=== PATIENT | female | born 1940 | race Caucasian/White ===

== ENCOUNTER 2022-02-27 02:07 | Inpatient (IN) | payer MEDICARE, OTHER ==
[2022-02-27] VITALS: BP 137/63
[~2022-02-27] VITALS: Ht 152.4 cm; Wt 80.7 kg
[2022-02-27] MEDS ORDERED: FUROSEMIDE 20 MG/2 ML VIAL IVP ONE (02:15)
[2022-02-27] MEDS ORDERED: NITROGLYCERIN OINT 1 GM PACKET TP ONE ×2 (02:15→03:39)
[2022-02-27] MEDS ORDERED: ASPIRIN 325 MG TABLET PO ONE (02:15)
[2022-02-27 02:39] LABS: HEMATOCRIT 34.2 % (31.2-41.9); MEAN CORPUSCULAR VOLUME 92.7 fL (75.5-95.3); PLATELET COUNT (AUTO) 229 K/uL (179-408)
--- NOTE | 2022-02-27 02:46 | NUR ---
02:00 - PATIENT BROUGHT IN BY RESCUE, BEING AMBU BAGGED 100% WITH ORAL AIRWAY IN PLACE, THEN RT PRESENT, PT BEING BAGGED , THEN PT PLACED ON BI/PAP @ 02:08, WITH RT ASSIST, INITIAL SETTINGS, V/O DR SOLITARIO, 06/07 , R16, 100%, PT WAS WAKING UP SLIGHTLY , KNOWS WHERE SHE IS. Millicent RAMIREZ FLIGHT LINE MECHANIC Addendum: 02/27/22 at 0249 by BARBARA RAMIREZ RT Amended: Links added.
[2022-02-27 02:47] LABS: CARBON DIOXIDE 16 mmol/L (21-32); CHLORIDE 102 mmol/L (98-107); CREATININE 1.6 mg/dL (0.6-1.3); POTASSIUM 3.2 mmol/L (3.5-5.1); UREA NITROGEN, BLOOD 20 mg/dL (7-18)
[2022-02-27 02:50] LABS: GLUCOSE 359 mg/dL (74-106)
--- NOTE | 2022-02-27 02:50 | NUR ---
BIB FLAME HARDENING MACHINE SETTER FROM HOME WITH C/O SOB, PATIENT ARRIVED TO ER WITH A GCS OF 1-1-1- BVM IN PROCESS, PATIENT RESPONDED TO PAINFUL STIMULI WHEN PLACED INTO BED. MD AT BEDSIDE FOR EXAM, PATIENT WAS PLACED ON BI-PAP, BILATERAL WRIST RESTRAINS APPLIED PER MD ORDER. PATENT IS BECOMING MORE ORIENTED TO SITUATION AND WAS ABLE TO ANSWER QUESTIONS. #20G ESTABLISHED IN LEFT AC, BLOOD WAS COLLECTED AND SENT TO LAB. PATIENT INFORMED OF PLAN OF CARE AT THIS TIME. #20G REMAINS INTACT FROM FIELD TO LEFT HAND, SIDE RAILS UP WILL CONTINUE TO MONITOR.
[2022-02-27] MEDS ORDERED: POTASSIUM BICARBONATE/CIT AC 25 MEQ TABLET.EFF PO ONE (03:00)
[2022-02-27] MEDS ORDERED: POTASSIUM BICARBONATE/CIT AC 25 MEQ TABLET.EFF ONE (03:38)
[2022-02-27] MEDS ORDERED: FUROSEMIDE 40 MG/4 ML VIAL ONE (03:38)
[2022-02-27] MEDS ORDERED: ASPIRIN 325 MG TABLET ONE (03:39)
[2022-02-27 04:00] VITALS: BP 135/68
--- NOTE | 2022-02-27 04:27 | NUR ---
ASSISTED ON BEDPAN, SPECIMEN SENT TO LAB AT THIS TIME. FAMILY AT BEDSIDE UPDATED ON PLAN OF CARE. RESPIRATORY CALLED TO CHECK ON BI-PAP MACHINE, PATIENT STATES AIR BLOWING INTO HER EYES.
[2022-02-27 04:44] LABS: *BILIRUBIN,URIN NEGATIVE (NEGATIVE); *BLOOD, URINE 2+ (NEGATIVE); *CLARITY,URINE CLEAR (CLEAR); *COLOR,URINE YELLOW (YELLOW); *KETONES,URINE NEGATIVE (NEGATIVE); *UROBILINOGEN,URINE 0.2 E.U./dl (NORMAL); LEUKOCYTE ESTERASE ,URINE 1+ (NEGATIVE); NITRITE, URINE NEGATIVE (NEGATIVE); PH,URINE 5.5 (5.0-8.0); UGLUCOSE TRACE (NEGATIVE)
[2022-02-27 05:02] LABS: BACTERIA,URINE MANY /HPF (NONE SEEN); SQUAMOUS EPITHELIAL CELL,UR FEW /HPF (NONE SEEN)
[2022-02-27 05:21] LABS: BILIRUBIN,DIRECT 0.1 mg/dL (0.0-0.2); BILIRUBIN,TOTAL 0.2 mg/dL (0.2-1.0)
[2022-02-27] MEDS: MAGNESIUM SULFATE/D5W 100 ML IV SCH ×3 (06:07→06:53)
[2022-02-27] MEDS ORDERED: MAGNESIUM SULFATE/D5W 100 ML ONE (06:32)
[2022-02-27] MEDS ORDERED: PANTOPRAZOLE SODIUM 40 MG TABLET.DR PO SCH (07:00)
[2022-02-27] MEDS ORDERED: ENOXAPARIN SODIUM 40 MG/0.4 ML DISP.SYRIN SQ SCH (07:00)
[2022-02-27] MEDS ORDERED: ONDANSETRON 4 MG/2 ML VIAL IV PRN (07:00)
[2022-02-27] MEDS ORDERED: MAGNESIUM HYDROXIDE 30 ML LIQUID UDC PO PRN (07:00)
[2022-02-27] MEDS ORDERED: AZITHROMYCIN IV 500 MG in IV DEXTROSE 5% 250 ML IV SCH (07:00)
[2022-02-27] MEDS ORDERED: REMEDY ESSENTIAL ZINC PASTE 113 GM TP PRN (07:00)
[2022-02-27 07:11] LABS: ABG BASE EXCESS -4.3 mmol/L; ABG HCO3 20.7 mmol/L; ABG PCO2 37.7 mmHg (35.0-45.0); ABG PH 7.357 (7.350-7.450); ABG PO2 269.7 mmHg (75.0-100.0); ABG SITE RIGHT RADIAL; ABG TOTAL HEMOGLOBIN 11.2 G/dL (12.0-16.0); COHb 0.3 % (0.5-1.5); MetHb 0.3 % (0.0-1.5); VENT MODE BIPAP
--- NOTE | 2022-02-27 07:45 | NUR ---
Received report from night custodian. Pt is in room 1A, A/Ox3 and on BiPap. Pt was admitted to tele with Dx of CHF and respiratory failure by . Spoke with nursing supervisor boarding Angélica who stated pt can by admitted to 3rd floor tele, called for bed, charge nurse to call back. Plan of care discussed with pt and son who is at bedside.
[2022-02-27] MEDS: CEFTRIAXONE 1 G in IV DEXTROSE 5% 50 ML IV SCH (08:30)
[2022-02-27] MEDS ORDERED: CEFTRIAXONE /D5W 50ML IVPB **ER PYXIS IV ONE (08:40)
[2022-02-27] MEDS ORDERED: AZITHROMYCIN 500MG/ D5W 250ML IVPB **ER PYXIS ONLY IV ONE (08:40)
[2022-02-27] MEDS ORDERED: ENOXAPARIN SODIUM 40 MG/0.4 ML DISP.SYRIN SQ ONE (08:40)
--- NOTE | 2022-02-27 09:00 | NUR ---
Pt requested to be taken off Bipap. HEAD BANDER AND LINER OPERATOR at bedside, pt placed on 100% NRB mask with O2 at 15L.
--- NOTE | 2022-02-27 09:30 | NUR ---
Pt remains on NRB mask with pulse ox 100%. Nursing administrative supervisor is aware of pending tele admission.
[2022-02-27] MEDS: FUROSEMIDE 40 MG/4 ML VIAL IV SCH (10:15)
[2022-02-27] MEDS ORDERED: DEXTROSE 50% 50 ML DISP.SYRIN IV PRN (11:15)
[2022-02-27] MEDS ORDERED: POTASSIUM CHLORIDE 20 MEQ TAB.PRT.SR PO ONE (11:30)
[2022-02-27] MEDS: BLOOD SUGAR DIAGNOSTIC 1 EACH STRIP VI SCH ×3 (11:30→21:00)
--- NOTE | 2022-02-27 12:00 | NUR ---
Pt was seen by .
--- NOTE | 2022-02-27 12:15 | NUR ---
Pt placed on O2 6L via N/C.
--- NOTE | 2022-02-27 12:30 | NUR ---
Pt resting in gurney and talking on cell phone. No acute distress noted at this time. Pt remains on O2 6L via N/C with pulse ox readings of 94-98%.
[2022-02-27] MEDS ORDERED: ACETAMINOPHEN 325 MG TABLET ONE (13:36)
--- NOTE | 2022-02-27 14:34 | NUR ---
PATIENT ROLLED IN FROM EMERGENCY DEPARTMENT VIA GURNEY BY SAMI. PATIENT AWAKE, ALERT, AWAKE AND VERBALLY RESPONSIVE. PATIENT ASSISTED OUT OF THE GURNEY AND SHE AMBULATED TO THE BATHROOM WITH MINIMAL ASSISTANCE AND PATIENT TOLERATED IT WELL. PATIENT BACK TO BED. TELE BOX ATTACHED TO PATIENT ACCORDING. PATIENT CLEANED, CHANGED INTO HOSPITAL GOWN AND MADE COMFORTABLE. ORIENTATION TO THE ROOM COMPLETED, PATIENT VERBALIZED UNDERSTANDING. WILL MONITOR.
--- NOTE | 2022-02-27 14:40 | NUR ---
SBAR report given via telephone and pt trans to tele floor room 308. No acute distress noted, family with pt.
[2022-02-27 14:56] VITALS: BP 137/78
[2022-02-27] MEDS ORDERED: ATOR40TA PO (15:42)
[2022-02-27] MEDS ORDERED: LEVO125T8 PO (15:42)
[2022-02-27] MEDS ORDERED: LOSA1TAB42 PO (15:42)
[2022-02-27] MEDS ORDERED: PANT40TA49 PO (15:42)
[2022-02-27] MEDS ORDERED: METO-357 PO (15:42)
[2022-02-27] MEDS ORDERED: ZOLPIDEM 5 MG TABLET PO PRN (18:45)
[2022-02-27 20:00] VITALS: BP 172/76
[2022-02-27] MEDS: ATORVASTATIN 40 MG TABLET PO SCH (22:08)
[2022-02-27] MEDS: METOPROLOL SUCCINATE XL 50 MG TAB.SR.24H PO SCH (22:16)
[2022-02-27] MEDS: INSULIN REGULAR, HUMAN 300 UNIT/3 ML VIAL SQ PRN (22:21)
[2022-02-27] MEDS: ACETAMINOPHEN 325 MG TABLET PO PRN (22:23)
[2022-02-28] MEDS: ACETAMINOPHEN 325 MG TABLET PO PRN ×2 (01:58→22:08)
[2022-02-28] MEDS: PANTOPRAZOLE SODIUM 40 MG TABLET.DR PO SCH (06:09)
[2022-02-28] MEDS: CEFTRIAXONE 1 G in IV DEXTROSE 5% 50 ML IV SCH (06:09)
[2022-02-28] MEDS: LEVOTHYROXINE SODIUM 125 MCG TABLET PO SCH (06:09)
[2022-02-28] MEDS: BLOOD SUGAR DIAGNOSTIC 1 EACH STRIP VI SCH ×4 (07:45→21:15)
[2022-02-28 07:48] LABS: HEMATOCRIT 28.9 % (31.2-41.9); MEAN CORPUSCULAR VOLUME 88.7 fL (75.5-95.3); PLATELET COUNT (AUTO) 195 K/uL (179-408)
[2022-02-28 08:08] LABS: CREATININE 1.2 mg/dL (0.6-1.3); MAGNESIUM 1.6 mg/dL (1.8-2.4); PHOSPHOROUS 5.9 mg/dL (2.5-4.9); POTASSIUM 4.8 mmol/L (3.5-5.1)
[2022-02-28] MEDS ORDERED: AZITHROMYCIN IV 500 MG in IV DEXTROSE 5% 250 ML IV SCH (09:00)
[2022-02-28] MEDS ORDERED: Medication Not On Formulary EA (Losartan/Hydrochlorothiazide (Losartan-Hctz 100-12.5 Mg PO SCH (09:00)
[2022-02-28] MEDS: FUROSEMIDE 40 MG/4 ML VIAL IV SCH (09:47)
[2022-02-28 09:51] LABS: NEUTROPHILS % (MANUAL) 0 % (42-75)
[2022-02-28] MEDS: METOPROLOL SUCCINATE XL 50 MG TAB.SR.24H PO SCH ×2 (09:56→21:11)
[2022-02-28] MEDS: LOSARTAN POTASSIUM 50 MG TABLET PO SCH (09:56)
[2022-02-28] MEDS: HYDROCHLOROTHIAZIDE 12.5 MG CAPSULE PO SCH (09:56)
[2022-02-28] MEDS: ENOXAPARIN SODIUM 30 MG/0.3 ML DISP.SYRIN SUBCUT SCH (09:57)
[2022-02-28 11:12] VITALS: BP 133/77
[2022-02-28] MEDS: INSULIN REGULAR, HUMAN 300 UNIT/3 ML VIAL SQ PRN ×2 (11:43→17:18)
[2022-02-28] MEDS: MAGNESIUM SULFATE/D5W 100 ML IV SCH ×2 (12:39→13:05)
[2022-02-28] MEDS ORDERED: AMIODARONE HCL IV 150 MG in IV DEXTROSE 5% 100 ML IV ONE (15:00)
[2022-02-28] MEDS ORDERED: AMIODARONE HCL IV 450 MG in IV DEXTROSE 5% 250 ML IV PRN (15:00)
[2022-02-28 15:30] VITALS: BP 109/62
--- NOTE | 2022-02-28 15:40 | NUR ---
RECEIVED PATIENT GEORGINA STATUS TO BOLUS AND START AMIODERONE DRIP. VERY ANXIOUS. EMOTIONAL SUPPORT.MED. AND REASON FOR MED EXPLAINED AT LENGTH. VERBALIZED UNDERSTANDING.
[2022-02-28 16:15] VITALS: BP 118/65
[2022-02-28 17:00] VITALS: BP 131/76
[2022-02-28 18:00] VITALS: BP 100/50
--- NOTE | 2022-02-28 19:35 | NUR ---
Received patient in bed alert oriented, no sob no chest pain, A flutter on tele, on Amiodarone IV drip 33.3 hr, no complain of pain, assisted with toileting, cont to monitor.
[2022-02-28] MEDS: ATORVASTATIN 40 MG TABLET PO SCH (21:09)
[2022-02-28] MEDS: INSULIN REGULAR, HUMAN 300 UNITS/3 ML VIAL SQ PRN (21:20)
--- NOTE | 2022-02-28 21:29 | NUR ---
Notify Dr Aragon patient request for Ambien 5mg po for sleep, with order.
[2022-02-28] MEDS ORDERED: ZOLPIDEM 5 MG TABLET PO PRN (21:30)
--- NOTE | 2022-02-28 22:15 | NUR ---
amiodarone iv meds titrated to 16.6 ml/hr as per schedule, no sob no chest pain, HR 89. BP 121/75. RR 18, A flutter on tele. cont to monitor.
[2022-03-01] MEDS: ACETAMINOPHEN 325 MG TABLET PO PRN ×2 (03:52→21:07)
[2022-03-01] MEDS: LEVOTHYROXINE SODIUM 125 MCG TABLET PO SCH (06:39)
[2022-03-01] MEDS: PANTOPRAZOLE SODIUM 40 MG TABLET.DR PO SCH (06:39)
[2022-03-01] MEDS: BLOOD SUGAR DIAGNOSTIC 1 EACH STRIP VI SCH ×4 (06:43→21:25)
[2022-03-01] MEDS: CEFTRIAXONE 1 G in IV DEXTROSE 5% 50 ML IV SCH (06:45)
[2022-03-01] MEDS: INSULIN REGULAR, HUMAN 300 UNIT/3 ML VIAL SQ PRN ×3 (07:40→16:16)
[2022-03-01 07:41] VITALS: BP 114/50
--- NOTE | 2022-03-01 08:00 | NUR ---
AWAKE ALERT AND ORIENTED X3 ABLE TO VERBALIZE NEEDS WELL, SOMEWHAT ANXIOUS. CONTINUE ON AMIODARONE DRIP PER PROTOCOL. CONTROLLED AFIB ON MONITOR. DENIES PAIN OR SOB ON RA SATURATING 97%. CONTINUE WITH GEORGINA MONITORING
[2022-03-01 08:06] LABS: CARBON DIOXIDE 31 mmol/L (21-32); CHLORIDE 98 mmol/L (98-107); CREATININE 1.4 mg/dL (0.6-1.3); GLUCOSE 167 mg/dL (74-106); POTASSIUM 4.9 mmol/L (3.5-5.1); UREA NITROGEN, BLOOD 19 mg/dL (7-18)
[2022-03-01 08:31] LABS: HEMATOCRIT 31.5 % (31.2-41.9); MEAN CORPUSCULAR HEMOGLOBIN 28.9 uug (24.7-32.8); MEAN CORPUSCULAR VOLUME 87.9 fL (75.5-95.3); PLATELET COUNT (AUTO) 208 K/uL (179-408)
[2022-03-01] MEDS: FUROSEMIDE 40 MG/4 ML VIAL IV SCH (08:53)
[2022-03-01 08:59] LABS: NEUTROPHILS % (MANUAL) 0 % (42-75)
[2022-03-01] MEDS: ENOXAPARIN SODIUM 30 MG/0.3 ML DISP.SYRIN SUBCUT SCH (08:59)
[2022-03-01] MEDS: HYDROCHLOROTHIAZIDE 12.5 MG CAPSULE PO SCH (09:01)
[2022-03-01] MEDS: LOSARTAN POTASSIUM 50 MG TABLET PO SCH (09:01)
[2022-03-01] MEDS: METOPROLOL SUCCINATE XL 50 MG TAB.SR.24H PO SCH ×2 (09:01→21:16)
[2022-03-01 11:46] VITALS: BP 97/43
--- NOTE | 2022-03-01 12:00 | NUR ---
PATIENT CONVERT TO SR RANGES 60-65, DENIES CHEST PAIN, SEEN BY [facility] HOSPITALIST SEE NOTES
[2022-03-01 16:00] VITALS: BP 121/47
[2022-03-01] MEDS: ASPIRIN EC 81 MG TABLET.DR PO SCH (16:14)
[2022-03-01] MEDS: AMIODARONE HCL 200 MG TABLET PO SCH (16:14)
[2022-03-01] MEDS ORDERED: RIVAROXABAN 15 MG TABLET PO SCH (18:00)
--- NOTE | 2022-03-01 18:00 | NUR ---
SEEN BY DR DENNISON FOR FOLLOW-UP STATUS CHANGED TO TELE. REMAINS ON SR. O2 SAT RA 97%
[2022-03-01] MEDS: ZOLPIDEM 5 MG TABLET PO PRN ×2 (21:06→22:09)
[2022-03-01] MEDS: ATORVASTATIN 40 MG TABLET PO SCH (21:07)
[2022-03-01] MEDS: INSULIN REGULAR, HUMAN 300 UNITS/3 ML VIAL SQ PRN (21:21)
[2022-03-02] MEDS: ACETAMINOPHEN 325 MG TABLET PO PRN (04:34)
[2022-03-02] MEDS: LEVOTHYROXINE SODIUM 125 MCG TABLET PO SCH (06:18)
[2022-03-02] MEDS: PANTOPRAZOLE SODIUM 40 MG TABLET.DR PO SCH (06:18)
[2022-03-02] MEDS: BLOOD SUGAR DIAGNOSTIC 1 EACH STRIP VI SCH ×2 (06:27→11:46)
[2022-03-02] MEDS: CEFTRIAXONE 1 G in IV DEXTROSE 5% 50 ML IV SCH (06:44)
--- NOTE | 2022-03-02 07:33 | NUR ---
AWAKE ALERT AND ORIENTED X3 DENIES CHEST PAIN OR SOB ON RA SATURATING 95-97%. REMAINS SR ON MONITOR
[2022-03-02 07:50] LABS: HEMATOCRIT 29.7 % (31.2-41.9); MEAN CORPUSCULAR HEMOGLOBIN 28.7 uug (24.7-32.8); MEAN CORPUSCULAR VOLUME 87.7 fL (75.5-95.3); PLATELET COUNT (AUTO) 216 K/uL (179-408)
[2022-03-02] MEDS: INSULIN REGULAR, HUMAN 300 UNIT/3 ML VIAL SQ PRN ×2 (07:57→11:47)
[2022-03-02 08:04] LABS: CARBON DIOXIDE 31 mmol/L (21-32); CHLORIDE 98 mmol/L (98-107); CREATININE 1.5 mg/dL (0.6-1.3); GLUCOSE 143 mg/dL (74-106); POTASSIUM 3.7 mmol/L (3.5-5.1); UREA NITROGEN, BLOOD 21 mg/dL (7-18)
[2022-03-02 08:21] LABS: NEUTROPHILS % (MANUAL) 0 % (42-75)
[2022-03-02] MEDS: LOSARTAN POTASSIUM 50 MG TABLET PO SCH (08:26)
[2022-03-02] MEDS: ASPIRIN EC 81 MG TABLET.DR PO SCH (08:26)
[2022-03-02] MEDS: METOPROLOL SUCCINATE XL 50 MG TAB.SR.24H PO SCH (08:26)
[2022-03-02] MEDS: HYDROCHLOROTHIAZIDE 12.5 MG CAPSULE PO SCH (08:27)
[2022-03-02] MEDS: AMIODARONE HCL 200 MG TABLET PO SCH (08:27)
[2022-03-02] MEDS ORDERED: FUROSEMIDE 40 MG TABLET PO SCH (09:00)
[2022-03-02] MEDS ORDERED: LOSA50TA3 PO (10:19)
[2022-03-02] MEDS ORDERED: RIVA15TA PO (10:19)
[2022-03-02] MEDS ORDERED: ACET325T53 PO (10:19)
[2022-03-02] MEDS ORDERED: AMIO200T6 PO (10:19)
[2022-03-02] MEDS ORDERED: ZOLP5TAB2 PO (10:19)
[2022-03-02] MEDS ORDERED: FURO40TA5 PO (10:19)
[2022-03-02 11:30] VITALS: BP 105/61
--- NOTE | 2022-03-02 11:30 | NUR ---
SEEN BY HOSPITALIST ZIGGY STOVALL, DISCHARGE ORDER GIVEN
--- NOTE | 2022-03-02 14:15 | NUR ---
DISCHARGED HOME STABLE ACCOMPANIED BY SON WITH MEDICATION AND FOLLOW-UP INSTRUCTION GIVEN TO PATIENT AND SON. CARDIOLOGY APPT ALREADY SET FOR WEDNESDAY.
== END 2022-03-02 14:15 | disposition home health service (06) | DRG 291 ==
LOC: ER 02:07 → TELE3 14:07 → TELE-TD3 02-28 15:00 → TELE3 03-01 18:05
PROVIDERS: ADMIT Nurse Practitioner Acute Care; ATTEND Nurse Practitioner Acute Care
PROC: 5A09357 Assistance with Respiratory Ventilation, Less than 24 Consecutive Hours, Continuous Positive Airway Pressure (ICD-10-PCS; 2022-02-27)
PROC: 05H633Z Insertion of Infusion Device into Left Subclavian Vein, Percutaneous Approach (ICD-10-PCS; principal; 2022-02-28)
PROC: B547ZZA Ultrasonography of Left Subclavian Vein, Guidance (ICD-10-PCS; 2022-02-28)
DX: I11.0 Hypertensive heart disease with heart failure (principal); I50.31 Acute diastolic (congestive) heart failure; N17.0 Acute kidney failure with tubular necrosis; J96.01 Acute respiratory failure with hypoxia; J96.02 Acute respiratory failure with hypercapnia; E87.20 Acidosis, unspecified; I48.92 Unspecified atrial flutter; N39.0 Urinary tract infection, site not specified; D64.9 Anemia, unspecified; E03.9 Hypothyroidism, unspecified; E11.65 Type 2 diabetes mellitus with hyperglycemia; E66.9 Obesity, unspecified; E78.5 Hyperlipidemia, unspecified; E87.6 Hypokalemia; I25.10 Atherosclerotic heart disease of native coronary artery without angina pectoris; I27.20 Pulmonary hypertension, unspecified; I48.0 Paroxysmal atrial fibrillation; Z79.01 Long term (current) use of anticoagulants; Z20.822 Contact with and (suspected) exposure to COVID-19; E83.51 Hypocalcemia; Z68.34 Body mass index [BMI] 34.0-34.9, adult; G47.33 Obstructive sleep apnea (adult) (pediatric); I25.5 Ischemic cardiomyopathy; B96.20 Unspecified Escherichia coli [E. coli] as the cause of diseases classified elsewhere
CPT/HCPCS: 36415; 36600; 70030-TC; 71045; 83605; 83735; 84100; 84484; 85025; 85730; 93005; 93307; 94660; A4663; G0378; J0282; J0456; J0696; J1650; J1815; J1940; J3475; J3490; J7050